=== PATIENT | female | born 1980 | race Caucasian/White ===

== ENCOUNTER 2018-05-16 16:29 | Emergency (ER) | payer OTHER ==
[2018-05-16 16:35] VITALS: BP 144/100
--- NOTE | 2018-05-16 16:54 | ED Physician Documentation ---
History of Present Illness - Stated complaint Stated Complaint: RT LEG/CALF PX/COLDNESS IN FOOT - Chief complaint Chief Complaint: Ext Problem - History obtained from History obtained from: Patient - History of Present Illness Timing: How many weeks ago (1) Pain level max: 7 Pain level now: 4 Improved by: rest Worsened by: walking, bending - Additonal information Additional information: Patient is a 37-year-old female who states she has had right-sided sciatica for the past week. History of 2 herniated disks in her back. Occasional numbness and tingling to the right leg. States that her right foot has felt cold for the past few days. She states that the numbness goes down the lateral aspect of the leg wraps around at the tibia and over the top of her foot. No loss of bowel or bladder control. No difficulty with ambulation. No fevers. No IV drug use. No trauma. Also has been having right posterior calf pain for the past several days it is been constant. Describes it as a cramp. Review of Systems Constitutional: denies: Fever, Chills Throat: denies: Sore throat Cardiac: denies: Chest pain / pressure, Palpitations Respiratory: denies: Dyspnea, Cough PD PAST MEDICAL HISTORY - Past Medical History Past Medical History: Yes Psych: Depression - Past Surgical History Past Surgical History: Yes /LAB ASST: section - Present Medications Home Medications: Ambulatory Orders Medication Instructions Recorded Confirmed Meloxicam [Mobic] 15 mg PO DAILY PRN #20 tablet 05/16/18 predniSONE [Deltasone] 10 mg PO [id number] #42 tab 05/16/18 - Allergies Allergies/Adverse Reactions: Allergies Allergy/AdvReac Type Severity Reaction Status Date / Time No Known Drug Allergies Allergy Verified 05/16/18 16:35 - Social History Does the pt smoke?: No Smoking Status: Never smoker Does the pt drink ETOH?: Yes Does the pt have substance abuse?: No - Immunizations Immunizations are current?: Yes PD ED PE NORMAL - Vitals Vital signs reviewed: Yes - General General: Alert and oriented X 3, No acute distress - HEENT HEENT: Moist mucous membranes - Neck Neck: Supple, no meningeal sign - Back Back: No spinal TTP (No tenderness to palpation or percussion. No step-off or deformity) - Derm Derm: Warm and dry - Extremities Extremities: No edema, Other (mild posterior R calf TTP. NVI. Normal DP and PT pulses. No swelling. normal sensation. Normal bilateral lower extremity patellar and ankle jerk reflexes. Normal great toe extension bilaterally. no saddle anesthesia) - Neuro Neuro: Alert and oriented X 3, No motor deficit, No sensory deficit - Psych Psych: Normal mood, Normal affect Results - Vitals Vitals: Vital Signs - 24 hr 05/16/18 16:32 Temperature 36.6 C Heart Rate 100 Respiratory 18 Rate Blood Pressure 144/100 H O2 Saturation 98 Oxygen O2 Source Room air - Rads (name of study) R LE duplex US Radiology: Prelim report reviewed, EMP read contemporaneously, See rad report (no DVT) PD MEDICAL DECISION MAKING - ED course Complexity details: reviewed results, re-evaluated patient, considered differential (No cauda equina, no spinal epidural abscess, no fracture, no aortic dissection or evidence of aneursym rupture), d/w patient ED course: Patient is a 37-year-old female who presents to the emergency department what sounds like sciatica for the past week. She also feels that her foot is cold, though it is the same temperature as her other foot. No acute neurological deficits. Normal DP and PT pulses. Normal ultrasound of the leg. Will place on NSAIDs and a steroid taper and follow-up with her doctor. Ambulating without difficulty. Patient counseled regarding signs and symptoms for which I believe and urgent re-evaluation would be necessary. Patient with good understanding of and agreement to plan and is comfortable going home at this time This document was made in part using voice recognition software. While efforts are made to proofread this document, sound alike and grammatical errors may occur. Departure - Departure Disposition: 01 Home, Self Care Clinical Impression: Sciatica Qualifiers: Laterality: right Qualified Code(s): M54.31 - Sciatica, right side Condition: Good Instructions: ED Sciatica Follow-Up: SCHUYLER CASTRO MD [Primary Care Provider] - Within 1 week Prescriptions: Meloxicam [Mobic] 15 mg PO DAILY PRN #20 tablet PRN Reason: pain predniSONE [Deltasone] 10 mg PO [id number] #42 tab Comments: Return if you worsen. Your ultrasound is negative for a DVT today. We will trial you on steroids to see if this decreases the inflammation. You should follow-up with your doctor for further care. Discharge Date/Time: 05/16/18 19:06
[2018-05-16] MEDS ORDERED: DEXAMETHASONE 10 MG/ML VIAL PO STA (18:20)
[2018-05-16] MEDS ORDERED: CHERRY SYRUP 10 ML UDC PO ONE (18:40)
--- NOTE | 2018-05-16 19:04 | Ultrasound Report ---
Reason: R LE swelling pain Procedure Date: 05/16/2018 Accession Number: [id number] / [id number] Procedure: US - Duplex Ext Veins Right CPT Code: FULL RESULT: EXAM: RIGHT LOWER EXTREMITY VENOUS ULTRASOUND EXAM DATE: 05/16/2018 06:34 PM. CLINICAL HISTORY: Right lower extremity swelling and pain. COMPARISON: None. TECHNIQUE: Real-time sonographic vascular imaging was performed by the fly worker through the lower extremity utilizing both color-flow and Doppler spectral analysis. Multiple patient services representative static images were saved for review. FINDINGS: Common Femoral Vein (CFV): Normal. CFV-GSV Junction: Normal. Profunda Femoral Vein (PFV): Normal. Femoral Vein (FV) Prox: Normal. Femoral Vein (FV) Mid: Normal. Femoral Vein (FV) Dist: Normal. Popliteal Vein: Normal. Posterior Tibial Veins: Normal. Peroneal Veins: Normal. Contralateral Side CFV: Normal. Other: None. IMPRESSION: No evidence for deep venous thrombosis. RADIA
== END 2018-05-16 19:06 | disposition home or self-care (01) ==
LOC: ED 16:29
DX: M54.31 Sciatica, right side (principal)
CPT/HCPCS: 93971; 99283; A9270

== ENCOUNTER 2018-06-13 16:55 | Outpatient (CLI) | payer OTHER ==
--- NOTE | 2018-06-14 14:41 | MRI Report ---
Reason: ANESTHESIA OF SKIN Procedure Date: 06/13/2018 Accession Number: [id number] / [id number] Procedure: MRI - Lumbar Spine W/O CPT Code: FULL RESULT: EXAM: MRI LUMBAR SPINE WITHOUT CONTRAST EXAM DATE: 06/13/2018 05:42 PM. CLINICAL HISTORY: Anesthesia of skin. COMPARISON: None. TECHNIQUE: Multiplanar, multisequence T1-weighted and fluid-sensitive sequences of the lumbar spine from T12 to S1 without contrast. Other: None. FINDINGS: Spinal Canal: The conus terminates at L2. The conus medullaris and cauda equina are unremarkable. Alignment: No scoliosis or spondylolisthesis. Bone Marrow: Five [id number] lumbar vertebral bodies are assumed. No gross fractures or bone lesions. No bone marrow replacement. Disk Levels/Facets: T12-L1: Unremarkable. L1-L2: Unremarkable. L2-L3: Unremarkable. L3-L4: Unremarkable. L4-L5: Small midline posterior disk margin high signal annulus fissure. Negative for spinal canal stenosis or foraminal stenosis. L5-S1: Posterior right paracentral L5-S1 disk extrusion 6.6 mm AP dimension, 1.4 cm in transverse dimension and 7 mm in height with right lateral recess stenosis, posterior displacement of the proximal descending right S1 nerve root and probable impingement proximal descending right S1 nerve root. Central AP thecal sac diameter is 1 cm. The left intervertebral foramen is negative for stenosis. Mild right foraminal stenosis from 2 mm foraminal disk protrusion. Mild disk degeneration. Musculature: Normal. No edema or fatty atrophy. Other: The partially visualized retroperitoneum is unremarkable. IMPRESSION: Moderate right S1 lateral recess stenosis, posterior displacement of the proximal descending right S1 nerve root and probable proximal right S1 nerve root impingement from L5-S1 posterior right paracentral 6.6 mm in AP dimension, 1.4 cm in transverse dimension and 7 mm in height disk extrusion. Comment: The following findings are so common in adults without low back pain that while we report their presence, they must be interpreted with caution and in the context of the clinical situation. (Reference Mandeepk et al, Spine 2001) Prevalence of findings in patients without low back pain: Disk degeneration (any evidence): 92% Disk desiccation/T2 signal loss: 83% Disk height loss: 56% Disk bulge: 64% Disk protrusion: 32% Annular tear/high intensity zone: 38% RADIA
== END 2018-06-13 16:56 | disposition home or self-care (01) ==
LOC: DI 16:55
PROVIDERS: ATTEND Family Medicine
DX: M51.27 Other intervertebral disc displacement, lumbosacral region (principal); M48.08 Spinal stenosis, sacral and sacrococcygeal region; R20.0 Anesthesia of skin
CPT/HCPCS: 72148

== ENCOUNTER 2024-03-02 08:35 | Outpatient (CLI) | payer OTHER ==
--- NOTE | 2024-03-02 17:07 | Ultrasound Report ---
PROCEDURE: Pelvic w/Transvaginal INDICATIONS: PELVIC AND PERINEAL PAIN TECHNIQUE: Real-time scanning was performed of the pelvic organs, with image documentation. Additional endovagi nal scanning was necessary due to incomplete visualization of the adnexal and endometrial structures by transabdominal scanning. COMPARISON: None. FINDINGS: Uterus: Uterus is retroverted and enlarged in size at 11.8 x 6 x 9.8 cm. The myometrium is heteroge neous. The endometrium measures 17.3 mm in combined thickness. Multiple uterine fibroids which dist ort the endometrium at the fundus. For example: -Right posterior subserosal/submucosal, measures 4.6 x 4.7 x 4.7 cm -Left posterior subserosal/submucosal, measures 6 x 5.3 x 5.7 cm -Left anterior subserosal, measures 3.5 x 2.8 x 2.5 cm Ovaries: The right ovary was not visualized. The left ovary measures 3.2 x 1.3 x 2.4 cm with volume of 5.2 cm. Less than 12 follicles can be seen in the left ovary. No adnexal masses are seen. No cys tic lesions measuring greater than 3 cm. Other: No pathologic free abdominal or pelvic fluid. IMPRESSION: 1.Endometrium is mildly thickened at 17.3 mm. Correlate with menstrual cycle. If clinically warranted , consider tissue sampling. 2.Multiple uterine fibroids which distort the endometrium, the largest of which measures 6 x 5.3 x 5. 7 cm. 3.Right ovary was not visualized. Reviewed by: Kiara Ponce MD on 03/02/2024 5:06 PM PDT Approved by: Kiara Ponce MD on 03/02/2024 5:06 PM PDT Station ID: [id number]
== END 2024-03-02 08:36 | disposition home or self-care (01) ==
LOC: DI 08:35
PROVIDERS: ATTEND Family Medicine
DX: R93.89 Abnormal findings on diagnostic imaging of other specified body structures (principal); D25.2 Subserosal leiomyoma of uterus; D25.0 Submucous leiomyoma of uterus